=== PATIENT | female | born 1955 | race Caucasian/White ===

== ENCOUNTER 2017-09-08 12:30 | Outpatient (CLI) | payer OTHER ==
--- NOTE | 2017-09-08 15:00 | RAD ---
RIGHT SHOULDER THREE VIEWS: History: Right shoulder pain. FINDINGS/IMPRESSION: No fracture, dislocation, or bony destruction is seen. There is mild degenerative change in the right acromioclavicular joint. POS: [facility]
--- NOTE | 2017-09-08 15:10 | RAD ---
CHEST TWO VIEWS: HISTORY: Acute PA with stent placement. COMPARISON: Chest radiographs from 07/20/2014. FINDINGS: The lungs are clear. No pneumothorax or effusion. The cardiac silhouette and mediastinal contours a re within normal limits. There is no acute osseous abnormality. Mild vascular calcifications of the aorta. IMPRESSION: No acute intrathoracic abnormality. POS: [facility]
--- NOTE | 2017-09-08 15:17 | RAD ---
RIGHT RIBS: HISTORY: Rib pain for a month. No injury. COMPARISON: None. FINDINGS: No acute fracture. No malalignment. Acromioclavicular joint and glenohumeral joint are relatively u nremarkable. IMPRESSION: No acute fracture or malalignment of the right ribs. POS: [facility]
== END 2017-09-08 12:31 | disposition home or self-care (01) ==
LOC: NAV RAD 12:30
DX: M25.511 Pain in right shoulder (principal); I25.2 Old myocardial infarction; F17.290 Nicotine dependence, other tobacco product, uncomplicated; Z95.5 Presence of coronary angioplasty implant and graft; Z85.3 Personal history of malignant neoplasm of breast
CPT/HCPCS: 71046

== ENCOUNTER 2017-09-18 08:56 | Emergency (ER) | payer OTHER ==
[2017-09-18] MEDS ORDERED: HYDROcodone/Acetaminophen 10/325 mg Tablet ONE (09:23)
--- NOTE | 2017-09-18 09:56 | RAD ---
RIGHT KNEE FOUR VIEWS: History: Twisting injury. Pain. Comparison: None. FINDINGS: There is a suprapatellar effusion. No fracture or malalignment. Joint spaces are preserved. IMPRESSION: Nonspecific suprapatellar effusion. POS: [facility]
== END 2017-09-18 10:28 | disposition home or self-care (01) ==
LOC: NAV ERS 08:56
DX: S83.91XA Sprain of unspecified site of right knee, initial encounter (principal); I25.10 Atherosclerotic heart disease of native coronary artery without angina pectoris; E78.5 Hyperlipidemia, unspecified; F17.290 Nicotine dependence, other tobacco product, uncomplicated; Z79.82 Long term (current) use of aspirin; Z79.899 Other long term (current) drug therapy; Z85.3 Personal history of malignant neoplasm of breast; W54.1XXA Struck by dog, initial encounter
CPT/HCPCS: 99406

== ENCOUNTER 2020-08-22 00:28 | Inpatient (IN) | payer OTHER ==
[2020-08-22] MEDS ORDERED: Acetaminophen 500 MG TAB ONE (00:48)
[2020-08-22] MEDS ORDERED: Sodium Chloride 0.9% 1,000 ML ONE ×3 (00:58→03:46)
[2020-08-22] MEDS ORDERED: Sodium Chloride 0.9% 100 ML ONE (00:58)
[2020-08-22] MEDS ORDERED: cefTRIAXone\\ROCEPHIN 2 GM VIAL ONE (00:58)
[2020-08-22 01:11] LABS: Hemoglobin 13.7 g/dL (12.0-16.0); Mean Corpuscular HGB CONC 34.3 g/dL (32.0-36.0); Mean Corpuscular Hemoglobin 35.4 pg (27.0-31.0); Mean Platelet Volume 6.3 fL (7.4-10.4); Platelet Count 112 thou/uL (130-400); RBC Distribution Width 12.2 % (11.5-14.5); Red Blood Cell (RBC) Count 3.86 mill/uL (4.20-5.40); White Blood Cell (WBC) Count 10.8 thou/uL (4.8-10.8)
[2020-08-22 01:16] LABS: Bilirubin Negative (Negative); Blood, Urine Trace (Negative); Clarity Cloudy (Clear); Glucose, Urine (Dipstick) Negative (Negative); Ketone, Urine Negative (Negative); Leukocyte Trace (Negative); Nitrite Positive (Negative); Protein, Urine (Dipstick) Negative (Neg-Trace)
[2020-08-22 01:17] LABS: Bacteria/HPF 4+ HPF (None Seen); RBC/HPF 0-3 HPF (0-3); Squamous Epithelial 0-3 HPF (0-3)
[2020-08-22 01:19] LABS: #Basophils 0.1 thou/uL (0.0-0.2); #Eosinphils 0.3 thou/uL (0.0-0.7); #Monocytes 0.7 thou/uL (0.11-0.59); #Neutrophils 8.8 thou/uL (1.40-6.50); %Basophils 0.5 % (0.0-1.0); %Lymphocytes 8.8 % (21.0-51.0); %Monocytes 6.3 % (0.0-10.0); %Neutrophils 81.5 % (42.0-75.0); MDiff Complete? YES; Macrocytosis SLIGHT = 6-15 cells (100X) (0-5/hpf); Platelet Morphology Comment Appears Decreased
[2020-08-22 01:25] LABS: ALT (SGPT) 54 U/L (8-55); AST (SGOT) 73 U/L (5-34); Albumin 3.3 g/dL (3.4-4.8); Alkaline Phosphatase 110 U/L (40-110); Anion Gap 14 mmol/L (10-20); BUN (Urea Nitrogen) 8 mg/dL (9.8-20.1); Bilirubin, Total 1.6 mg/dL (0.2-1.2); Calc. Creatinine Clearance 0 mL/min (70-130); Calcium 8.9 mg/dL (7.8-10.44); Carbon Dioxide 22 mmol/L (23-31); Chloride 106 mmol/L (98-107); Globulin 3.5 g/dL (2.4-3.5); Glucose 108 mg/dL (80-115); Potassium 3.7 mmol/L (3.5-5.1); Protein, Total 6.8 g/dL (5.8-8.1); Sodium 138 mmol/L (136-145)
[2020-08-22] MEDS ORDERED: Sodium Chloride 0.9% 500 ML ONE (01:39)
[2020-08-22 02:15] LABS: SARS-CoV-2 NAA Rapid Test Not Detected (NotDetected)
[2020-08-22] MEDS ORDERED: Sodium Chloride 0.9% 20 ML ONE (04:33)
[2020-08-22] MEDS ORDERED: Ondansetron PF 4 MG/2 ML Vial IVP PRN ×2 (04:45→05:39)
[2020-08-22] MEDS ORDERED: Ondansetron ODT 4 MG TAB SL PRN ×2 (04:45→12:30)
[2020-08-22 04:52] VITALS: BMI 29.7
[2020-08-22] MEDS ORDERED: Ondansetron ODT 4 MG TAB PO PRN (05:39)
[2020-08-22] MEDS ORDERED: Acetaminophen 325 MG TAB PO PRN (05:39)
[2020-08-22] MEDS: Sodium Chloride 0.9% 1,000 ML IV SCH ×2 (05:50→12:55)
--- NOTE | 2020-08-22 07:30 | RAD ---
CHEST 1 VIEW: COMPARISON: 07/11/2013. 09/08/2017. HISTORY: Pain. FINDINGS: Normal cardiac silhouette. Atherosclerosis of the aorta. Chronic lung parenchymal changes without m ass or consolidation. No pneumothorax or pleural effusion. IMPRESSION: 1. No acute cardiopulmonary process. 2. Chronic lung parenchymal changes. 3. Atherosclerosis. POS: [facility]
[2020-08-22] MEDS: Famotidine 20 MG TAB PO SCH ×2 (09:05→20:55)
[2020-08-22] MEDS: Carvedilol 25 MG TAB PO SCH ×2 (09:05→17:15)
[2020-08-22] MEDS ORDERED: cefTRIAXone\\ROCEPHIN 1 GM in Sodium Chloride 0.9% 100 ML IVPB SCH (18:00)
--- NOTE | 2020-08-23 08:07 | HP ---
Admission to the acute unit of [facility]. A patient of Ms. Mayra Bond. HISTORY OF PRESENT ILLNESS: The patient is a very pleasant 64-year-old female, who presented to the emergency room on the day prior to admission with acute onset of chills, weakness, and malaise. Was found to be febrile in the emergency room to 102.4 with normal O2 sat at 97%, blood pressure 128/69, and pulse of 119. She met sepsis protocol and had a sepsis workup with evaluation revealing positive nitrite, 4 to 6 white cells. Her serum white count was normal, however, at 10.8 and lactate was 1.5. She was given fluid resuscitation in the emergency room and appeared to stabilize. Had blood and urine cultures done and was started on IV vancomycin and Rocephin and was admitted to the acute unit for monitoring. She denied any symptoms of chest pain, shortness of breath, palpitations, cough, sputum production, abdominal pain, nausea, or vomiting. PAST MEDICAL HISTORY: Remarkable for history of coronary artery disease status post stents in 2000 and 2005 after non-ST VT. She subsequently developed ischemic cardiomyopathy, ejection fraction 15% to 20%, was being followed by Dr. Solorzano, and now ejection fraction is up to normal at 60% on carvedilol. She also has a history of hypertension, which is controlled to goal on this medication; hyperlipidemia; chronic psoriasis which she is on no treatment at this time; and nicotine abuse. She, however, states that she stopped smoking in 2019. She denies alcohol and drug abuse. She does live alone. Her medical history is also positive for cancer of the breast, status post lumpectomy, chemotherapy and radiation. PAST SURGICAL HISTORY: Positive for stents in 2000 and 2005, lumpectomy in 2017, left carotid stent, tonsillectomy, and kidney stone removal. ALLERGIES: SHE HAS A HISTORY OF ALLERGIES TO PENICILLIN AND CODEINE, BUT WAS GIVEN ROCEPHIN IN THE ER AND VANCOMYCIN, NOT ZOSYN, BECAUSE OF THIS. REVIEW OF SYSTEMS: HEENT: She denies headaches, dizziness, change in vision or hearing, hoarseness, or dysphagia. PULMONARY: Denies cough, sputum production, pneumonia, asthma, or tuberculosis. CARDIOVASCULAR: Denies chest pain, orthopnea, paroxysmal nocturnal dyspnea, or edema. GASTROINTESTINAL: Denies nausea, vomiting, diarrhea, constipation, or abdominal pain. GENITOURINARY: Denies dysuria or hematuria. MUSCULOSKELETAL: Complains of diffuse myalgias and weakness. NEUROLOGIC: Denies localized numbness or weakness in the arms or extremities. PHYSICAL EXAMINATION: GENERAL: The patient is an elderly white female, appears in mild distress, weak, lying in bed, but in no respiratory distress. Oriented x3 and cooperative. VITAL SIGNS: Showed to have blood pressure of 94/44, temperature is 99, pulse 96, respirations 18, and O2 sats 96% on room air. HEENT: Pupils are equal, round, and reactive to light and accommodation. Sclerae anicteric. Conjunctivae pale. Oral mucous membranes well hydrated. NECK: Supple. There are no nodes or masses. JVP is not elevated. LUNGS: Clear. CARDIAC: Regular rhythm. No gallops or murmurs. ABDOMEN: Soft and nontender with no masses or organomegaly. SKIN/EXTREMITIES: Display no edema, clubbing, or cyanosis. NEUROLOGICAL: Intact. LABORATORY DATA: Urine and blood cultures are pending. White count 10,800, hematocrit 39, hemoglobin 13. Sodium is 138, potassium 3.7, chloride 106, bicarb 22, BUN 8, creatinine 0.78. Lactate repeated is 1.4. Total bilirubin 1.6, AST 73. Troponin 0.010. Chest x-ray shows no acute process, chronic lung parenchymal changes. ASSESSMENT: A 64-year-old white female, who presents with sepsis criteria with tachycardia, fever, chills despite no leukocytosis, borderline lactate, is being admitted to the hospital for treatment of early sepsis, most likely due to urinary tract infection. Urine and blood cultures have been done. She has been started on broad-spectrum antibiotics with Rocephin and vancomycin and will also be given continued fluids as she did respond to fluid resuscitation in the emergency room after blood pressure decreased slightly. She is chronically on medications of carvedilol 12.5 twice daily, aspirin 325 daily, furosemide 10 daily with simvastatin 40 nightly and Aldactone 25 daily. These will all be held and the carvedilol will be given only if blood pressure is above 110. Job ID: [id number]
[2020-08-23] MEDS: Carvedilol 25 MG TAB PO SCH ×2 (09:03→18:15)
[2020-08-23] MEDS: Famotidine 20 MG TAB PO SCH (09:04)
[2020-08-23 18:11] VITALS: BP 113/54; TEMP 98
[2020-08-23] MEDS ORDERED: Sulfameth/Trimethoprim DS 800-160mg TAB PO SCH (21:00)
== END 2020-08-23 19:00 | disposition home or self-care (01) | DRG 872 ==
LOC: NAV ERS 00:28 → NAV ACUTE 03:57
PROVIDERS: ADMIT Internal Medicine; ATTEND Internal Medicine
DX: A41.9 Sepsis, unspecified organism (principal); N39.0 Urinary tract infection, site not specified; I25.10 Atherosclerotic heart disease of native coronary artery without angina pectoris; E78.5 Hyperlipidemia, unspecified; I25.5 Ischemic cardiomyopathy; I10 Essential (primary) hypertension; L40.9 Psoriasis, unspecified; Z20.822 Contact with and (suspected) exposure to COVID-19; E78.00 Pure hypercholesterolemia, unspecified; Z92.3 Personal history of irradiation; Z92.21 Personal history of antineoplastic chemotherapy; Z85.3 Personal history of malignant neoplasm of breast; Z87.891 Personal history of nicotine dependence; Z90.89 Acquired absence of other organs; Z88.0 Allergy status to penicillin; Z88.6 Allergy status to analgesic agent; Z79.82 Long term (current) use of aspirin; Z79.891 Long term (current) use of opiate analgesic; Z79.899 Other long term (current) drug therapy; Z95.5 Presence of coronary angioplasty implant and graft; I25.2 Old myocardial infarction; Z87.442 Personal history of urinary calculi; Z95.820 Peripheral vascular angioplasty status with implants and grafts
CPT/HCPCS: 0240U; 71045; 80053; 81003; 81015; 83605; 84484; 85025; 87040; 87077; 87086; 87186; 93005; 96365; 96366; 96367; J0696; J3370; J3490; J7030; J7050

== ENCOUNTER 2021-02-07 16:53 | Emergency (ER) | payer BC ==
[~2021-02-07 16:53] MED LIST: Iopamidol 370 76% 100 ML VIAL ONE
[2021-02-07] MEDS ORDERED: Ondansetron PF 4 MG/2 ML Vial ONE ×2 (17:05→18:03)
[2021-02-07 17:12] LABS: #Basophils 0.1 thou/uL (0.0-0.2); #Eosinphils 1.1 thou/uL (0.0-0.7); #Lymphocytes 1.5 thou/uL (1.20-3.40); #Monocytes 0.5 thou/uL (0.11-0.59); #Neutrophils 4.2 thou/uL (1.40-6.50); %Basophils 0.7 % (0.0-1.0); %Eosinophils 15.3 % (0.0-10.0); %Lymphocytes 20.2 % (21.0-51.0); %Monocytes 6.5 % (0.0-10.0); %Neutrophils 57.3 % (42.0-75.0); Hemoglobin 10.1 g/dL (12.0-16.0); Mean Corpuscular HGB CONC 32.2 g/dL (32.0-36.0); Mean Corpuscular Hemoglobin 33.6 pg (27.0-31.0); Mean Platelet Volume 6.5 fL (7.4-10.4); Platelet Count 129 thou/uL (130-400); RBC Distribution Width 14.5 % (11.5-14.5); White Blood Cell (WBC) Count 7.3 thou/uL (4.8-10.8)
[2021-02-07] MEDS ORDERED: Sodium Chloride 0.9% 1,000 ML ONE (17:19)
[2021-02-07 17:32] LABS: ALT (SGPT) 50 U/L (8-55); AST (SGOT) 103 U/L (5-34); Albumin 3.2 g/dL (3.4-4.8); Alkaline Phosphatase 120 U/L (40-110); Anion Gap 13 mmol/L (10-20); BUN (Urea Nitrogen) 17 mg/dL (9.8-20.1); Bilirubin, Total 1.5 mg/dL (0.2-1.2); Calc. Creatinine Clearance 0 mL/min (70-130); Calcium 9.2 mg/dL (7.8-10.44); Carbon Dioxide 23 mmol/L (23-31); Chloride 106 mmol/L (98-107); Globulin 3.6 g/dL (2.4-3.5); Glucose 115 mg/dL (80-115); Lipase 71 U/L (8-78); Potassium 3.9 mmol/L (3.5-5.1); Protein, Total 6.8 g/dL (5.8-8.1); Sodium 138 mmol/L (136-145)
[2021-02-07 19:29] LABS: Bilirubin Negative (Negative); Blood, Urine Negative (Negative); Glucose, Urine (Dipstick) Negative (Negative); Ketone, Urine Negative (Negative); Leukocyte Trace (Negative); Nitrite Positive (Negative); Protein, Urine (Dipstick) Negative (Neg-Trace); Specific Gravity, Urine 1.015 (1.005-1.030)
[2021-02-07 19:42] LABS: Clarity SL HAZY (Clear)
[2021-02-07 19:43] LABS: Bacteria/HPF 3+ HPF (None Seen); RBC/HPF 0-3 HPF (0-3); Squamous Epithelial 0-3 HPF (0-3)
[2021-02-07] MEDS ORDERED: Sulfameth/Trimethoprim DS 800-160mg TAB ONE (21:38)
[2021-02-07] MEDS ORDERED: Promethazine 25 MG TAB ONE (21:38)
== END 2021-02-07 21:46 | disposition home or self-care (01) ==
LOC: NAV ERS 16:53
DX: N39.0 Urinary tract infection, site not specified (principal); E86.0 Dehydration; I25.10 Atherosclerotic heart disease of native coronary artery without angina pectoris; E78.5 Hyperlipidemia, unspecified; E78.00 Pure hypercholesterolemia, unspecified; Z87.891 Personal history of nicotine dependence; Z79.82 Long term (current) use of aspirin; Z79.899 Other long term (current) drug therapy
CPT/HCPCS: 71045; 74177; 80053; 81003; 81015; 83690; 83880; 84484; 85025; 87077; 87086; 87186; 93005; 94760; 96374; 96376; J2405; J7050; Q0169; Q9967

== ENCOUNTER 2021-02-11 18:42 | Emergency (ER) | payer BC ==
[2021-02-11] MEDS ORDERED: Morphine 4 MG/ML VIAL ONE (19:26)
[2021-02-11] MEDS ORDERED: Ondansetron PF 4 MG/2 ML Vial ONE (19:27)
[2021-02-11] MEDS ORDERED: Pantoprazole 40 MG VIAL ONE (19:27)
[2021-02-11] MEDS ORDERED: Lidocaine Viscous Sol 2% 15 ml UD Cup ONE (19:27)
[2021-02-11] MEDS ORDERED: Mag-Al Plus 1200 MG/1200 MG/120 MG/30 ML UDCUP ONE (19:27)
[2021-02-11] MEDS ORDERED: Sodium Chloride 0.9% 500 ML ONE (19:27)
[2021-02-11 19:41] LABS: #Eosinphils 0.3 thou/uL (0.0-0.7); #Lymphocytes 0.7 thou/uL (1.20-3.40); #Monocytes 0.2 thou/uL (0.11-0.59); #Neutrophils 2.4 thou/uL (1.40-6.50); %Basophils 0.7 % (0.0-1.0); %Eosinophils 7.1 % (0.0-10.0); %Lymphocytes 19.8 % (21.0-51.0); %Monocytes 5.8 % (0.0-10.0); %Neutrophils 66.6 % (42.0-75.0); Hemoglobin 9.7 g/dL (12.0-16.0); Mean Corpuscular HGB CONC 31.9 g/dL (32.0-36.0); Mean Corpuscular Hemoglobin 33.8 pg (27.0-31.0); Mean Platelet Volume 6.5 fL (7.4-10.4); Platelet Count 81 thou/uL (130-400); RBC Distribution Width 14.7 % (11.5-14.5); Red Blood Cell (RBC) Count 2.87 mill/uL (4.20-5.40); White Blood Cell (WBC) Count 3.6 thou/uL (4.8-10.8)
[2021-02-11 19:46] LABS: ALT (SGPT) 43 U/L (8-55); AST (SGOT) 48 U/L (5-34); Alkaline Phosphatase 102 U/L (40-110); Anion Gap 15 mmol/L (10-20); BUN (Urea Nitrogen) 8 mg/dL (9.8-20.1); Calc. Creatinine Clearance 0 mL/min (70-130); Calcium 8.8 mg/dL (7.8-10.44); Carbon Dioxide 20 mmol/L (23-31); Chloride 105 mmol/L (98-107); Globulin 3.2 g/dL (2.4-3.5); Glucose 111 mg/dL (80-115); Lipase 52 U/L (8-78); Potassium 3.8 mmol/L (3.5-5.1); Protein, Total 6.2 g/dL (5.8-8.1); Sodium 136 mmol/L (136-145)
[2021-02-11] MEDS ORDERED: Sucralfate 1 GM TAB ONE (20:51)
== END 2021-02-11 21:05 | disposition home or self-care (01) ==
LOC: NAV ERS 18:42
DX: K29.00 Acute gastritis without bleeding (principal); I25.10 Atherosclerotic heart disease of native coronary artery without angina pectoris; E78.5 Hyperlipidemia, unspecified; E78.00 Pure hypercholesterolemia, unspecified; Z87.891 Personal history of nicotine dependence
CPT/HCPCS: 80053; 83690; 85025; 96361; 96374; 96375; C9113; J2270; J2405; J7030

== ENCOUNTER 2021-02-13 12:34 | Emergency (ER) | payer BC ==
[2021-02-13] MEDS ORDERED: Ondansetron ODT 4 MG TAB ONE (12:51)
[2021-02-13] MEDS ORDERED: Ondansetron PF 4 MG/2 ML Vial ONE (13:26)
[2021-02-13 13:39] LABS: ALT (SGPT) 41 U/L (8-55); AST (SGOT) 52 U/L (5-34); Albumin 2.9 g/dL (3.4-4.8); Alkaline Phosphatase 94 U/L (40-110); Anion Gap 15 mmol/L (10-20); BUN (Urea Nitrogen) 10 mg/dL (9.8-20.1); Bilirubin, Total 1.2 mg/dL (0.2-1.2); Calc. Creatinine Clearance 0 mL/min (70-130); Calcium 8.9 mg/dL (7.8-10.44); Carbon Dioxide 18 mmol/L (23-31); Chloride 104 mmol/L (98-107); Globulin 3.4 g/dL (2.4-3.5); Glucose 102 mg/dL (80-115); Potassium 3.6 mmol/L (3.5-5.1); Protein, Total 6.3 g/dL (5.8-8.1); Sodium 133 mmol/L (136-145)
[2021-02-13 13:41] LABS: #Eosinphils 0.1 thou/uL (0.0-0.7); #Lymphocytes 0.8 thou/uL (1.20-3.40); #Monocytes 0.3 thou/uL (0.11-0.59); %Basophils 0.8 % (0.0-1.0); %Eosinophils 4.1 % (0.0-10.0); %Lymphocytes 25.5 % (21.0-51.0); %Monocytes 8.4 % (0.0-10.0); %Neutrophils 61.2 % (42.0-75.0); Hemoglobin 10.4 g/dL (12.0-16.0); Mean Corpuscular HGB CONC 30.9 g/dL (32.0-36.0); Mean Corpuscular Hemoglobin 33.6 pg (27.0-31.0); Mean Platelet Volume 6.1 fL (7.4-10.4); Platelet Count 63 thou/uL (130-400); RBC Distribution Width 15.1 % (11.5-14.5); Red Blood Cell (RBC) Count 3.08 mill/uL (4.20-5.40); White Blood Cell (WBC) Count 3.3 thou/uL (4.8-10.8)
[2021-02-13] MEDS ORDERED: Ketorolac Tromethamine 30 MG/ML VIAL ONE (14:03)
[2021-02-13] MEDS ORDERED: Sodium Chloride 0.9% 1,000 ML ONE ×2 (14:03→17:06)
[2021-02-13] MEDS ORDERED: Sodium Chloride 0.9% 100 ML ONE (15:05)
[2021-02-13] MEDS ORDERED: Promethazine HCl 25 MG/ML VIAL ONE (15:05)
[2021-02-13] MEDS ORDERED: Morphine 4 MG/ML VIAL ONE (15:18)
[2021-02-13 16:26] LABS: Lactic Acid 1.2 mmol/L (0.5-2.2)
== END 2021-02-13 18:50 | disposition home or self-care (01) ==
LOC: NAV ERS 12:34
DX: E86.0 Dehydration (principal); R11.2 Nausea with vomiting, unspecified; M54.9 Dorsalgia, unspecified; I25.10 Atherosclerotic heart disease of native coronary artery without angina pectoris; E78.5 Hyperlipidemia, unspecified; E78.00 Pure hypercholesterolemia, unspecified; Z87.891 Personal history of nicotine dependence; Z79.82 Long term (current) use of aspirin; Z79.899 Other long term (current) drug therapy
CPT/HCPCS: 71045; 71260; 74177; 80053; 83605; 84484; 85025; 85379; 93005; 94760; 96365; 96375; J1885; J2270; J2405; J2550; J7050; Q0162; Q9967

== ENCOUNTER 2021-08-12 21:45 | Emergency (ER) | payer BC ==
[2021-08-12] MEDS ORDERED: Ondansetron PF 4 MG/2 ML Vial ONE (22:23)
[2021-08-12] MEDS ORDERED: Sodium Chloride 0.9% 1,000 ML ONE (22:23)
[2021-08-12] MEDS ORDERED: Morphine 4 MG/ML VIAL ONE (23:07)
[2021-08-12 23:17] LABS: ALT (SGPT) 50 U/L (8-55); AST (SGOT) 60 U/L (5-34); Albumin 2.6 g/dL (3.4-4.8); Alkaline Phosphatase 103 U/L (40-110); Anion Gap 13 mmol/L (10-20); BUN (Urea Nitrogen) 6 mg/dL (9.8-20.1); Bilirubin, Total 1.8 mg/dL (0.2-1.2); Calc. Creatinine Clearance 0 mL/min (70-130); Calcium 8.6 mg/dL (7.8-10.44); Carbon Dioxide 22 mmol/L (23-31); Chloride 102 mmol/L (98-107); Globulin 3.6 g/dL (2.4-3.5); Glucose 95 mg/dL (80-115); Lipase 32 U/L (8-78); Potassium 3.7 mmol/L (3.5-5.1); Protein, Total 6.2 g/dL (5.8-8.1); Sodium 133 mmol/L (136-145)
[2021-08-12 23:25] LABS: #Eosinphils 0.2 thou/uL (0.0-0.7); #Lymphocytes 0.8 thou/uL (1.20-3.40); #Monocytes 0.5 thou/uL (0.11-0.59); %Basophils 0.8 % (0.0-1.0); %Eosinophils 5.1 % (0.0-10.0); %Lymphocytes 17.3 % (21.0-51.0); %Monocytes 10.8 % (0.0-10.0); Hemoglobin 9.9 g/dL (12.0-16.0); Mean Corpuscular HGB CONC 32.4 g/dL (32.0-36.0); Mean Platelet Volume 7.2 fL (7.4-10.4); Platelet Count 124 thou/uL (130-400); RBC Distribution Width 16.6 % (11.5-14.5); Red Blood Cell (RBC) Count 2.92 mill/uL (4.20-5.40); White Blood Cell (WBC) Count 4.5 thou/uL (4.8-10.8)
== END 2021-08-13 00:36 | disposition home or self-care (01) ==
LOC: NAV ERS 21:45
DX: R10.13 Epigastric pain (principal); R11.10 Vomiting, unspecified; I25.10 Atherosclerotic heart disease of native coronary artery without angina pectoris; E78.5 Hyperlipidemia, unspecified; E78.00 Pure hypercholesterolemia, unspecified; Z87.891 Personal history of nicotine dependence; Z79.899 Other long term (current) drug therapy
CPT/HCPCS: 74176; 80053; 82140; 83690; 85025; 96374; 96375; J2270; J2405; J7050

== ENCOUNTER 2021-08-16 07:40 | Emergency (ER) | payer BC ==
[2021-08-16] MEDS ORDERED: Ondansetron PF 4 MG/2 ML Vial ONE (08:37)
[2021-08-16] MEDS ORDERED: Sodium Chloride 0.9% 1,000 ML ONE (08:37)
[2021-08-16 09:11] LABS: ALT (SGPT) 39 U/L (8-55); AST (SGOT) 40 U/L (5-34); Albumin 2.7 g/dL (3.4-4.8); Alkaline Phosphatase 106 U/L (40-110); Anion Gap 11 mmol/L (10-20); BUN (Urea Nitrogen) 7 mg/dL (9.8-20.1); Calc. Creatinine Clearance 0 mL/min (70-130); Calcium 8.8 mg/dL (7.8-10.44); Carbon Dioxide 25 mmol/L (23-31); Chloride 100 mmol/L (98-107); Globulin 3.1 g/dL (2.4-3.5); Glucose 120 mg/dL (80-115); Lipase 47 U/L (8-78); Protein, Total 5.8 g/dL (5.8-8.1); Sodium 133 mmol/L (136-145)
[2021-08-16 09:14] LABS: #Eosinphils 0.1 thou/uL (0.0-0.7); #Lymphocytes 0.5 thou/uL (1.20-3.40); #Monocytes 0.3 thou/uL (0.11-0.59); #Neutrophils 2.7 thou/uL (1.40-6.50); %Basophils 1.1 % (0.0-1.0); %Eosinophils 1.9 % (0.0-10.0); %Lymphocytes 14.5 % (21.0-51.0); %Monocytes 7.8 % (0.0-10.0); %Neutrophils 74.7 % (42.0-75.0); Hemoglobin 10.3 g/dL (12.0-16.0); Mean Corpuscular HGB CONC 32.9 g/dL (32.0-36.0); Mean Corpuscular Hemoglobin 34.2 pg (27.0-31.0); Mean Platelet Volume 6.2 fL (7.4-10.4); Platelet Count 111 thou/uL (130-400); RBC Distribution Width 16.8 % (11.5-14.5); Red Blood Cell (RBC) Count 3.01 mill/uL (4.20-5.40); White Blood Cell (WBC) Count 3.7 thou/uL (4.8-10.8)
== END 2021-08-16 10:30 | disposition home or self-care (01) ==
LOC: NAV ERS 07:40
DX: E86.0 Dehydration (principal); R11.2 Nausea with vomiting, unspecified; I25.10 Atherosclerotic heart disease of native coronary artery without angina pectoris; E78.5 Hyperlipidemia, unspecified; E78.00 Pure hypercholesterolemia, unspecified; Z87.19 Personal history of other diseases of the digestive system; Z87.891 Personal history of nicotine dependence; Z85.3 Personal history of malignant neoplasm of breast; Z79.899 Other long term (current) drug therapy
CPT/HCPCS: 80053; 82140; 83690; 85025; 96372; 96374; J0500; J2405; J7050

== ENCOUNTER 2021-08-26 16:52 | Observation (INO) | payer BC ==
[2021-08-26 18:18] LABS: ALT (SGPT) 41 U/L (8-55); AST (SGOT) 46 U/L (5-34); Albumin 2.7 g/dL (3.4-4.8); Alkaline Phosphatase 105 U/L (40-110); Anion Gap 11 mmol/L (10-20); BUN (Urea Nitrogen) 4 mg/dL (9.8-20.1); Bilirubin, Total 1.8 mg/dL (0.2-1.2); Calc. Creatinine Clearance 0 mL/min (70-130); Calcium 8.8 mg/dL (7.8-10.44); Carbon Dioxide 25 mmol/L (23-31); Chloride 103 mmol/L (98-107); Globulin 3.4 g/dL (2.4-3.5); Glucose 92 mg/dL (80-115); Potassium 3.6 mmol/L (3.5-5.1); Protein, Total 6.1 g/dL (5.8-8.1); Sodium 135 mmol/L (136-145)
[2021-08-26 18:19] LABS: Magnesium 1.8 mg/dL (1.6-2.6)
[2021-08-26 18:21] LABS: Phosphorus 1.3 mg/dL (2.3-4.7)
[2021-08-26 20:28] LABS: SARS-CoV-2 NAA Rapid Test Not Detected (NotDetected)
[2021-08-26] MEDS ORDERED: Potassium Phosphate 22 MMOL in Sodium Chloride 0.9% 250 ML 250 ML IVPB SCH (21:30)
[2021-08-26] MEDS ORDERED: Carvedilol 3.125 MG TAB PO PRN (22:31)
[2021-08-26] MEDS ORDERED: Dicyclomine 20 MG TAB PO PRN (22:32)
[2021-08-26] MEDS ORDERED: Promethazine 25 MG TAB PO PRN (22:36)
[2021-08-26 22:51] VITALS: BMI 25.0
[2021-08-26] MEDS ORDERED: Atorvastatin Calcium 40 MG TAB PO SCH (23:00)
[2021-08-27 06:40] LABS: Anion Gap 7 mmol/L (10-20)
[2021-08-27 06:43] LABS: BUN (Urea Nitrogen) 4 mg/dL (9.8-20.1); Calc. Creatinine Clearance 97 mL/min (70-130); Calcium 8.3 mg/dL (7.8-10.44); Carbon Dioxide 24 mmol/L (23-31); Chloride 108 mmol/L (98-107); Glucose 79 mg/dL (80-115); Magnesium 1.7 mg/dL (1.6-2.6); Phosphorus 2.1 mg/dL (2.3-4.7); Potassium 3.3 mmol/L (3.5-5.1); Sodium 136 mmol/L (136-145)
[2021-08-27] MEDS ORDERED: Spironolactone 25 MG TAB PO SCH (08:00)
[2021-08-27] MEDS ORDERED: Furosemide 20 MG TAB PO SCH (09:00)
[2021-08-27] MEDS ORDERED: Carvedilol 25 MG TAB PO PRN ×2 (13:14→14:00)
[2021-08-27 13:25] VITALS: BP 101/66; TEMP 98.4
[2021-08-27] MEDS ORDERED: Promethazine 25 MG TAB PO PRN (13:43)
[2021-08-27] MEDS ORDERED: Carvedilol 3.125 MG TAB PO PRN (14:00)
[2021-08-27] MEDS ORDERED: Atorvastatin Calcium 40 MG TAB PO SCH ×2 (21:00)
[2021-08-28] MEDS ORDERED: Spironolactone 25 MG TAB PO SCH (08:00)
[2021-08-28] MEDS ORDERED: Potassium Chloride 20 MEQ TAB PO SCH ×2 (08:00)
[2021-08-28] MEDS ORDERED: Furosemide 20 MG TAB PO SCH (09:00)
== END 2021-08-27 13:50 | disposition home or self-care (01) ==
LOC: NAV ERS 16:52 → NAV ACUTE 19:40
PROVIDERS: ADMIT Family Medicine; ATTEND Family Medicine
DX: E83.39 Other disorders of phosphorus metabolism (principal); K74.60 Unspecified cirrhosis of liver; I25.10 Atherosclerotic heart disease of native coronary artery without angina pectoris; E78.5 Hyperlipidemia, unspecified; E78.00 Pure hypercholesterolemia, unspecified; Z85.3 Personal history of malignant neoplasm of breast; Z87.891 Personal history of nicotine dependence; Z79.899 Other long term (current) drug therapy; Z88.0 Allergy status to penicillin; Z88.5 Allergy status to narcotic agent; Z95.5 Presence of coronary angioplasty implant and graft; Z20.822 Contact with and (suspected) exposure to COVID-19
CPT/HCPCS: 80048; 80053; 83735; 84100; 96365; 96366; 99284; G0378; J7050; U0002

== ENCOUNTER 2021-09-05 14:18 | Emergency (ER) | payer BC ==
[2021-09-05] MEDS ORDERED: oxyCODONE 5 MG TAB PO SCH (14:51)
== END 2021-09-05 16:05 | disposition home or self-care (01) ==
LOC: NAV ERS 14:18
DX: S39.012A Strain of muscle, fascia and tendon of lower back, initial encounter (principal); S93.602A Unspecified sprain of left foot, initial encounter; S20.212A Contusion of left front wall of thorax, initial encounter; S30.0XXA Contusion of lower back and pelvis, initial encounter; I25.10 Atherosclerotic heart disease of native coronary artery without angina pectoris; E78.5 Hyperlipidemia, unspecified; Z87.891 Personal history of nicotine dependence; Z79.899 Other long term (current) drug therapy; W00.0XXA Fall on same level due to ice and snow, initial encounter
CPT/HCPCS: 71250; 72131; 72192; 94799

== ENCOUNTER 2022-09-15 15:08 | Emergency (ER) | payer BC ==
[2022-09-15 16:15] LABS: #Basophils 0.1 thou/uL (0.0-0.2); #Eosinphils 0.1 thou/uL (0.0-0.7); #Lymphocytes 0.8 thou/uL (1.20-3.40); #Monocytes 0.7 thou/uL (0.11-0.59); #Neutrophils 5.5 thou/uL (1.40-6.50); %Basophils 0.7 % (0.0-1.0); %Eosinophils 1.2 % (0.0-10.0); %Lymphocytes 11.2 % (21.0-51.0); %Monocytes 9.7 % (0.0-10.0); %Neutrophils 77.2 % (42.0-75.0); Mean Corpuscular HGB CONC 32.8 g/dL (32.0-36.0); Mean Corpuscular Hemoglobin 35.7 pg (27.0-31.0); Mean Platelet Volume 6.1 fL (7.4-10.4); Platelet Count 99 10x3/uL (130-400); RBC Distribution Width 23.4 % (11.5-14.5); Red Blood Cell (RBC) Count 1.54 mill/uL (4.20-5.40); White Blood Cell (WBC) Count 7.1 10x3/uL (4.8-10.8)
[2022-09-15 16:17] LABS: Hemoglobin 5.5 g/dL (12.0-16.0)
[2022-09-15 16:22] LABS: Anisocytosis SLIGHT = 6-15 cells (100X) (0-5/hpf); Burr Cells SLIGHT = 2-5 cells (100X) (0-1/hpf); Elliptocytes SLIGHT = 2-5 cells (100X) (0-1/hpf); Spherocytes SLIGHT = 1-5 cells (100X) (None Seen)
[2022-09-15 16:23] LABS: Hypochromia SLIGHT = 6-15 cells (100X) (0-5/hpf); Macrocytosis SLIGHT = 6-15 cells (100X) (0-5/hpf)
[2022-09-15 16:24] LABS: Platelet Morphology Comment Appears Decreased
== END 2022-09-15 17:44 | disposition short-term general hospital (02) ==
LOC: NAV ERS 15:08
DX: D64.9 Anemia, unspecified (principal); I25.10 Atherosclerotic heart disease of native coronary artery without angina pectoris; E78.00 Pure hypercholesterolemia, unspecified; Z87.891 Personal history of nicotine dependence
CPT/HCPCS: 36415; 85025; 86850; 86870; 86900; 86901; 99284

== ENCOUNTER 2022-12-04 03:16 | Emergency (ER) | payer BC, MEDICARE ==
[2022-12-04 03:48] LABS: Mean Corpuscular Volume 96.3 fl (78.0-98.0); Red Blood Cell (RBC) Count 3.26 mill/uL (4.20-5.40); White Blood Cell (WBC) Count 4.5 10x3/uL (4.8-10.8)
[2022-12-04 03:49] LABS: #Eosinphils 0.3 thou/uL (0.0-0.7); #Lymphocytes 0.9 thou/uL (1.20-3.40); #Monocytes 0.6 thou/uL (0.11-0.59); #Neutrophils 2.7 thou/uL (1.40-6.50); %Eosinophils 5.6 % (0.0-10.0); %Lymphocytes 20.1 % (21.0-51.0); %Neutrophils 59.3 % (42.0-75.0); Manual Diff?? NO; Mean Corpuscular HGB CONC 31.8 g/dL (32.0-36.0); Mean Corpuscular Hemoglobin 30.6 pg (27.0-31.0); Mean Platelet Volume 6.1 fL (7.4-10.4); Platelet Count 94 10x3/uL (130-400)
[2022-12-04] MEDS ORDERED: Sodium Chloride 0.9% 1,000 ML ONE (03:51)
[2022-12-04] MEDS ORDERED: Ondansetron PF 4 MG/2 ML Vial ONE (03:51)
[2022-12-04] MEDS ORDERED: Morphine 4 MG/ML VIAL ONE ×2 (03:51→05:58)
[2022-12-04] MEDS ORDERED: Aspirin Chewable 81 MG TAB ONE (03:51)
[2022-12-04 04:00] LABS: AST (SGOT) 35 U/L (5-34); Alkaline Phosphatase 126 U/L (40-110); Anion Gap 11 mmol/L (10-20); BUN (Urea Nitrogen) 6 mg/dL (9.8-20.1); Bilirubin, Total 1.6 mg/dL (0.2-1.2); Calc. Creatinine Clearance 0 mL/min (70-130); Carbon Dioxide 23 mmol/L (23-31); Chloride 108 mmol/L (98-107); Estimated GFR 84; Globulin 2.7 g/dL (2.4-3.5); Glucose 101 mg/dL (80-115); Potassium 3.5 mmol/L (3.5-5.1); Protein, Total 4.7 g/dL (5.8-8.1); Sodium 138 mmol/L (136-145)
[2022-12-04 04:04] LABS: ALT (SGPT) 30 U/L (8-55)
[2022-12-04] MEDS ORDERED: fentaNYL 50 mcg/mL 1 mL Vial ONE (04:36)
[2022-12-04] MEDS ORDERED: Fentanyl 100 MCG/2 ML VIAL ONE (05:17)
== END 2022-12-04 06:14 | disposition home or self-care (01) ==
LOC: NAV ERS 03:16
DX: R07.89 Other chest pain (principal); K80.20 Calculus of gallbladder without cholecystitis without obstruction; K59.00 Constipation, unspecified; R79.1 Abnormal coagulation profile; I25.10 Atherosclerotic heart disease of native coronary artery without angina pectoris; Z87.891 Personal history of nicotine dependence; Z79.899 Other long term (current) drug therapy
CPT/HCPCS: 71045; 74177; 80053; 83690; 83880; 84484; 85025; 85379; 93005; 96372; 96374; 96375; 96376; 99285; J3010; J1650; J2270; J2405; J7050

== ENCOUNTER 2023-04-15 19:06 | Emergency (ER) | payer MEDICARE ==
[2023-04-15] MEDS ORDERED: Sodium Chloride 0.9% 500 ML ONE (20:00)
[2023-04-15] MEDS ORDERED: Ondansetron PF 4 MG/2 ML Vial ONE (20:00)
[2023-04-15 20:06] LABS: #Eosinphils 0.1 thou/uL (0.0-0.7); #Lymphocytes 0.8 thou/uL (1.20-3.40); #Monocytes 0.5 thou/uL (0.11-0.59); #Neutrophils 2.6 thou/uL (1.40-6.50); %Basophils 0.6 % (0.0-1.0); %Lymphocytes 19.9 % (21.0-51.0); %Monocytes 11.2 % (0.0-10.0); %Neutrophils 65.4 % (42.0-75.0); Hematocrit 27.6 % (36.0-47.0); Hemoglobin 8.9 g/dL (12.0-16.0); Mean Corpuscular HGB CONC 32.3 g/dL (32.0-36.0); Mean Platelet Volume 6.3 fL (7.4-10.4); Platelet Count 96 10x3/uL (130-400)
[2023-04-15 20:20] LABS: ALT (SGPT) 24 U/L (8-55); AST (SGOT) 41 U/L (5-34); Albumin 2.6 g/dL (3.4-4.8); Alkaline Phosphatase 136 U/L (40-110); Anion Gap 12 mmol/L (10-20); BUN (Urea Nitrogen) 10 mg/dL (9.8-20.1); Bilirubin, Total 1.6 mg/dL (0.2-1.2); Calc. Creatinine Clearance 0 mL/min (70-130); Calcium 9.9 mg/dL (7.8-10.44); Carbon Dioxide 26 mmol/L (23-31); Chloride 104 mmol/L (98-107); Estimated GFR 76; Globulin 2.8 g/dL (2.4-3.5); Glucose 105 mg/dL (80-115); Lipase 93 U/L (8-78); Potassium 3.2 mmol/L (3.5-5.1); Protein, Total 5.4 g/dL (5.8-8.1); Sodium 139 mmol/L (136-145)
[2023-04-15] MEDS ORDERED: Promethazine HCl 25 MG/ML VIAL ONE (20:20)
[2023-04-15 20:26] LABS: Bilirubin Negative (Negative); Blood, Urine Negative (Negative); Clarity Clear (Clear); Glucose, Urine (Dipstick) Negative (Negative); Ketone, Urine Negative (Negative); Leukocyte Small (Negative); Nitrite Negative (Negative); Protein, Urine (Dipstick) Negative (Neg-Trace); Specific Gravity, Urine 1.015 (1.005-1.030); Urobilinogen 0.2 mg/dL (Less than 2); pH, Urine 7.5 (5.0-9.0)
[2023-04-15 20:29] LABS: CAUTI Indications for Culture Fever or rigors; RBC/HPF 0-3 HPF (0-3)
[2023-04-15 20:30] LABS: Squamous Epithelial 0-3 HPF (0-3); Transitional Epithelial 0-3 HPF (None Seen)
[2023-04-15 20:34] LABS: Bacteria/HPF 3+ HPF (None Seen)
[2023-04-15 20:36] LABS: Urine Culture Reflex Yes Yes
[2023-04-15] MEDS ORDERED: cefTRIAXone (ROCEPHIN) 1 GM VIAL ONE (20:42)
[2023-04-15] MEDS ORDERED: Sodium Chloride 0.9% 100 ML ONE (20:42)
[2023-04-15] MEDS ORDERED: Morphine 4 MG/ML VIAL ONE (22:40)
== END 2023-04-15 23:42 | disposition home or self-care (01) ==
LOC: NAV ERS 19:06
DX: N39.0 Urinary tract infection, site not specified (principal); U07.1 COVID-19; R11.2 Nausea with vomiting, unspecified; R10.84 Generalized abdominal pain; I25.2 Old myocardial infarction; Z87.891 Personal history of nicotine dependence; Z79.899 Other long term (current) drug therapy
CPT/HCPCS: 36415; 71045; 74177; 80053; 81001; 83690; 85025; 87077; 87086; 87186; 96365; 96375; J0696; J1642; J2270; J2405; J2550; J3490; J7030; Q9967

== ENCOUNTER 2023-05-06 18:40 | Emergency (ER) | payer MEDICARE ==
[2023-05-06] MEDS ORDERED: Ondansetron PF 4 MG/2 ML Vial ONE (19:46)
[2023-05-06 19:51] LABS: Bilirubin Negative (Negative); Blood, Urine Negative (Negative); Clarity Clear (Clear); Glucose, Urine (Dipstick) Negative (Negative); Ketone, Urine Negative (Negative); Leukocyte Negative (Negative); Nitrite Negative (Negative); Protein, Urine (Dipstick) Negative (Neg-Trace); Urobilinogen 0.2 mg/dL (Less than 2)
[2023-05-06 19:51] LABS: #Basophils 0.1 thou/uL (0.0-0.2); #Eosinphils 0.1 thou/uL (0.0-0.7); #Lymphocytes 0.8 thou/uL (1.20-3.40); #Monocytes 0.7 thou/uL (0.11-0.59); #Neutrophils 5.2 thou/uL (1.40-6.50); %Eosinophils 1.8 % (0.0-10.0); %Lymphocytes 11.6 % (21.0-51.0); %Monocytes 9.4 % (0.0-10.0); %Neutrophils 76.2 % (42.0-75.0); Hematocrit 25.8 % (36.0-47.0); Hemoglobin 8.5 g/dL (12.0-16.0); Mean Corpuscular HGB CONC 32.9 g/dL (32.0-36.0); Mean Corpuscular Hemoglobin 34.6 pg (27.0-31.0); Mean Platelet Volume 6.3 fL (7.4-10.4); Platelet Count 106 10x3/uL (130-400); Red Blood Cell (RBC) Count 2.45 mill/uL (4.20-5.40); White Blood Cell (WBC) Count 6.9 10x3/uL (4.8-10.8)
[2023-05-06 20:01] LABS: ALT (SGPT) 21 U/L (8-55); AST (SGOT) 29 U/L (5-34); Albumin 2.4 g/dL (3.4-4.8); Alkaline Phosphatase 95 U/L (40-110); Anion Gap 10 mmol/L (10-20); BUN (Urea Nitrogen) 46 mg/dL (9.8-20.1); Bilirubin, Total 1.3 mg/dL (0.2-1.2); Calc. Creatinine Clearance 0 mL/min (70-130); Calcium 9.7 mg/dL (7.8-10.44); Carbon Dioxide 26 mmol/L (23-31); Chloride 101 mmol/L (98-107); Estimated GFR 52; Globulin 2.5 g/dL (2.4-3.5); Glucose 115 mg/dL (80-115); Lipase 86 U/L (8-78); Potassium 4.4 mmol/L (3.5-5.1); Protein, Total 4.9 g/dL (5.8-8.1); Sodium 133 mmol/L (136-145)
[2023-05-06 20:01] LABS: Bacteria/HPF Rare-Few HPF (None Seen); CAUTI Indications for Culture Pelvic or flank pain; Renal Epithelial 0-3 HPF (None Seen); Squamous Epithelial 0-3 HPF (0-3); WBC/HPF 0-3 HPF (0-3)
[2023-05-06 20:02] LABS: Urine Culture Reflex No No
[2023-05-06] MEDS ORDERED: Midodrine HCl 5 MG TAB PO SCH (20:15)
== END 2023-05-06 22:31 | disposition home or self-care (01) ==
LOC: NAV ERS 18:40
DX: K52.9 Noninfective gastroenteritis and colitis, unspecified (principal); Z87.891 Personal history of nicotine dependence
CPT/HCPCS: 80053; 81001; 83690; 85025; 96361; 96374; J1642; J2405

== ENCOUNTER 2023-05-21 04:10 | Emergency (ER) | payer MEDICARE ==
[2023-05-21 04:48] LABS: Hematocrit 39.2 % (36.0-47.0); Hemoglobin 12.9 g/dL (12.0-16.0); Mean Corpuscular Volume 99.7 fl (78.0-98.0); Red Blood Cell (RBC) Count 2.82 mill/uL (4.20-5.40); White Blood Cell (WBC) Count 11.2 10x3/uL (4.8-10.8)
[2023-05-21] MEDS ORDERED: Sodium Chloride 0.9% 1,000 ML ONE ×2 (04:49→08:19)
[2023-05-21] MEDS ORDERED: Ondansetron PF 4 MG/2 ML Vial ONE (04:49)
[2023-05-21 04:50] LABS: %Basophils 0.5 % (0.0-1.0); %Eosinophils 0.5 % (0.0-10.0); %Lymphocytes 6.9 % (21.0-51.0); %Monocytes 5.9 % (0.0-10.0); %Neutrophils 86.2 % (42.0-75.0); Manual Diff?? NO; Mean Corpuscular HGB CONC 32.9 g/dL (32.0-36.0); Mean Corpuscular Hemoglobin 32.8 pg (27.0-31.0); Mean Platelet Volume 5.7 fL (7.4-10.4); Platelet Count 182 10x3/uL (130-400); RBC Distribution Width 16.4 % (11.5-14.5)
[2023-05-21 04:51] LABS: #Basophils 0.1 thou/uL (0.0-0.2); #Eosinphils 0.1 thou/uL (0.0-0.7); #Lymphocytes 0.8 thou/uL (1.20-3.40); #Monocytes 0.7 thou/uL (0.11-0.59); #Neutrophils 9.9 thou/uL (1.40-6.50)
[2023-05-21 05:04] LABS: ALT (SGPT) 29 U/L (8-55); AST (SGOT) 39 U/L (5-34); Albumin 3.1 g/dL (3.4-4.8); Alkaline Phosphatase 180 U/L (40-110); Anion Gap 20 mmol/L (10-20); BUN (Urea Nitrogen) 17 mg/dL (9.8-20.1); Bilirubin, Total 2.5 mg/dL (0.2-1.2); Calc. Creatinine Clearance 0 mL/min (70-130); Calcium 12.5 mg/dL (7.8-10.44); Carbon Dioxide 21 mmol/L (23-31); Chloride 98 mmol/L (98-107); Estimated GFR 47; Globulin 3.4 g/dL (2.4-3.5); Glucose 107 mg/dL (80-115); Lipase 80 U/L (8-78); Magnesium 1.7 mg/dL (1.6-2.6); Potassium 4.6 mmol/L (3.5-5.1); Protein, Total 6.5 g/dL (5.8-8.1); Sodium 134 mmol/L (136-145)
[2023-05-21] MEDS ORDERED: fentaNYL 50 mcg/mL 1 mL Vial ONE ×3 (05:10→08:33)
[2023-05-21] MEDS ORDERED: Promethazine HCl 25 MG/ML VIAL ONE (05:43)
[2023-05-21] MEDS ORDERED: Iopamidol 370 76% 100 ML VIAL ONE (09:00)
[2023-05-21 09:42] LABS: ALT (SGPT) 26 U/L (8-55); AST (SGOT) 37 U/L (5-34); Albumin 2.7 g/dL (3.4-4.8); Alkaline Phosphatase 155 U/L (40-110); Anion Gap 14 mmol/L (10-20); BUN (Urea Nitrogen) 16 mg/dL (9.8-20.1); Bilirubin, Total 2.4 mg/dL (0.2-1.2); Calc. Creatinine Clearance 0 mL/min (70-130); Calcium 10.7 mg/dL (7.8-10.44); Carbon Dioxide 22 mmol/L (23-31); Chloride 104 mmol/L (98-107); Estimated GFR 57; Globulin 2.9 g/dL (2.4-3.5); Glucose 104 mg/dL (80-115); Potassium 5.2 mmol/L (3.5-5.1); Protein, Total 5.6 g/dL (5.8-8.1); Sodium 135 mmol/L (136-145)
== END 2023-05-21 10:23 | disposition short-term general hospital (02) ==
LOC: NAV ERS 04:10
DX: N17.9 Acute kidney failure, unspecified (principal); E83.52 Hypercalcemia; E86.0 Dehydration; R11.2 Nausea with vomiting, unspecified; Z87.891 Personal history of nicotine dependence; E78.00 Pure hypercholesterolemia, unspecified; Z79.899 Other long term (current) drug therapy
CPT/HCPCS: 71045; 74177; 83690; 83735; 93005; 96361; 96374; 96375; 96376; 99285; J3010; 80053; 84443; 85025; J2405; J2550; J7050; Q9967

== ENCOUNTER 2023-09-18 00:33 | Emergency (ER) | payer MEDICARE ==
[2023-09-18] MEDS ORDERED: Sodium Chloride 0.9% 1,000 ML ONE ×2 (01:16→02:17)
[2023-09-18] MEDS ORDERED: Ondansetron PF 4 MG/2 ML Vial ONE (01:16)
[2023-09-18 01:30] LABS: #Eosinphils 0.1 thou/uL (0.0-0.7); #Lymphocytes 0.4 thou/uL (1.20-3.40); #Monocytes 0.3 thou/uL (0.11-0.59); #Neutrophils 4.5 thou/uL (1.40-6.50); %Basophils 0.5 % (0.0-1.0); %Eosinophils 1.6 % (0.0-10.0); %Lymphocytes 6.9 % (21.0-51.0); %Monocytes 5.3 % (0.0-10.0); %Neutrophils 85.7 % (42.0-75.0); Hematocrit 37.3 % (36.0-47.0); Mean Corpuscular HGB CONC 34.8 g/dL (32.0-36.0); Mean Corpuscular Hemoglobin 34.3 pg (27.0-31.0); Mean Corpuscular Volume 98.8 fl (78.0-98.0); Mean Platelet Volume 5.8 fL (7.4-10.4); Platelet Count 126 10x3/uL (130-400); RBC Distribution Width 13.9 % (11.5-14.5); Red Blood Cell (RBC) Count 3.78 mill/uL (4.20-5.40); White Blood Cell (WBC) Count 5.2 10x3/uL (4.8-10.8)
[2023-09-18 01:48] LABS: ALT (SGPT) 23 U/L (8-55); AST (SGOT) 37 U/L (5-34); Albumin 3.2 g/dL (3.4-4.8); Alkaline Phosphatase 165 U/L (40-110); Anion Gap 18 mmol/L (10-20); BUN (Urea Nitrogen) 17 mg/dL (9.8-20.1); Bilirubin, Total 3.1 mg/dL (0.2-1.2); Calc. Creatinine Clearance 0 mL/min (70-130); Calcium 10.5 mg/dL (7.8-10.44); Carbon Dioxide 18 mmol/L (23-31); Chloride 98 mmol/L (98-107); Estimated GFR 46; Globulin 4.2 g/dL (2.4-3.5); Glucose 139 mg/dL (80-115); Lipase 37 U/L (8-78); Potassium 3.7 mmol/L (3.5-5.1); Protein, Total 7.4 g/dL (5.8-8.1); Sodium 130 mmol/L (136-145)
[2023-09-18 02:10] LABS: Influenza A by NAA Not Detected (NotDetected); Influenza B by NAA Not Detected (NotDetected); SARS-CoV-2 NAA Rapid Test Not Detected (NotDetected)
[2023-09-18] MEDS ORDERED: fentaNYL 50 mcg/mL 1 mL Vial ONE (02:29)
[2023-09-18 03:38] LABS: Bilirubin Negative (Negative); Blood, Urine Negative (Negative); Clarity Clear (Clear); Glucose, Urine (Dipstick) Negative (Negative); Ketone, Urine Trace mg/dL (Negative); Leukocyte Negative (Negative); Nitrite Negative (Negative); Protein, Urine (Dipstick) Trace mg/dL (Neg-Trace); Specific Gravity, Urine 1.025 (1.005-1.030); Urobilinogen 0.2 mg/dL (Less than 2); pH, Urine 5.5 (5.0-9.0)
[2023-09-18 03:39] LABS: Bacteria/HPF None Seen HPF (None Seen); CAUTI Indications for Culture Dysuria,urgency,freq; Calcium Oxalate Crystals Rare HPF (None Seen); RBC/HPF 0-3 HPF (0-3); Squamous Epithelial 0-3 HPF (0-3); WBC/HPF 0-3 HPF (0-3)
[2023-09-18 03:40] LABS: Urine Culture Reflex No No
[2023-09-18 04:04] LABS: Lactic Acid 2.2 mmol/L (0.5-2.2)
[2023-09-18] MEDS ORDERED: Promethazine HCl 25 MG/ML VIAL ONE (04:22)
[2023-09-18] MEDS ORDERED: HYDROcodone/Acetaminophen 10/325 mg Tablet ONE (04:22)
== END 2023-09-18 05:00 | disposition home or self-care (01) ==
LOC: NAV ERS 00:33
DX: E86.0 Dehydration (principal); I25.2 Old myocardial infarction; Z87.891 Personal history of nicotine dependence
CPT/HCPCS: 80053; 81001; 83605; 83690; 85025; 96361; 96374; 96375; J1642; J2405; J2550; J3010; J7050

== ENCOUNTER 2023-12-14 15:32 | Emergency (ER) | payer MEDICARE ==
[2023-12-14] MEDS ORDERED: Morphine 4 MG/ML VIAL ONE (16:20)
[2023-12-14] MEDS ORDERED: Ondansetron PF 4 MG/2 ML Vial ONE (16:21)
[2023-12-14 16:44] LABS: Bilirubin Negative (Negative); Blood, Urine Negative (Negative); Clarity Clear (Clear); Glucose, Urine (Dipstick) Negative (Negative); Ketone, Urine Negative (Negative); Leukocyte Negative (Negative); Nitrite Negative (Negative); Protein, Urine (Dipstick) Negative (Neg-Trace); RBC/HPF 0-3 HPF (0-3); Specific Gravity, Urine 1.015 (1.005-1.030); Squamous Epithelial 0-3 HPF (0-3); Urobilinogen 0.2 mg/dL (Less than 2)
[2023-12-14 16:48] LABS: %Basophils 1.2 % (0.0-1.0); %Eosinophils 3.3 % (0.0-10.0); %Lymphocytes 15.9 % (21.0-51.0); %Monocytes 12.1 % (0.0-10.0); %Neutrophils 67.5 % (42.0-75.0); Hematocrit 26.7 % (36.0-47.0); Hemoglobin 8.5 g/dL (12.0-16.0); Manual Diff?? NO; Mean Corpuscular Hemoglobin 32.7 pg (27.0-31.0); Mean Platelet Volume 4.8 fL (7.4-10.4); Platelet Count 104 10x3/uL (130-400); RBC Distribution Width 15.3 % (11.5-14.5); Red Blood Cell (RBC) Count 2.61 mill/uL (4.20-5.40); White Blood Cell (WBC) Count 3.9 10x3/uL (4.8-10.8)
[2023-12-14 16:49] LABS: #Eosinphils 0.1 thou/uL (0.0-0.7); #Lymphocytes 0.6 thou/uL (1.20-3.40); #Monocytes 0.5 thou/uL (0.11-0.59); #Neutrophils 2.6 thou/uL (1.40-6.50)
[2023-12-14 16:55] LABS: ALT (SGPT) 31 U/L (8-55); AST (SGOT) 55 U/L (5-34); Albumin 2.3 g/dL (3.4-4.8); Alkaline Phosphatase 154 U/L (40-110); Anion Gap 13 mmol/L (10-20); BUN (Urea Nitrogen) 6 mg/dL (9.8-20.1); Bilirubin, Total 2.6 mg/dL (0.2-1.2); Calc. Creatinine Clearance 0 mL/min (70-130); Calcium 8.5 mg/dL (7.8-10.44); Carbon Dioxide 23 mmol/L (23-31); Chloride 102 mmol/L (98-107); Estimated GFR 80; Globulin 2.9 g/dL (2.4-3.5); Glucose 102 mg/dL (80-115); Lipase 75 U/L (8-78); Potassium 2.8 mmol/L (3.5-5.1); Protein, Total 5.2 g/dL (5.8-8.1); Sodium 135 mmol/L (136-145)
[2023-12-14] MEDS ORDERED: Potassium Chloride 10 MEQ/100 ML PREMIX BAG ONE (18:31)
== END 2023-12-14 19:38 | disposition home or self-care (01) ==
LOC: NAV ERS 15:32
DX: R10.33 Periumbilical pain (principal); D64.9 Anemia, unspecified; K74.60 Unspecified cirrhosis of liver; E87.6 Hypokalemia; R11.0 Nausea; Z87.891 Personal history of nicotine dependence; Z79.899 Other long term (current) drug therapy
CPT/HCPCS: 74177; 80053; 81001; 83605; 83690; 85025; 94760; 96365; 96375; J1642; J2270; J2405; J3480; Q9967

== ENCOUNTER 2023-12-22 10:29 | Outpatient (CLI) | payer MEDICARE ==
[2023-12-22 11:52] LABS: ALT (SGPT) 22 U/L (8-55); AST (SGOT) 39 U/L (5-34); Alkaline Phosphatase 128 U/L (40-110); Anion Gap 11 mmol/L (10-20); BUN (Urea Nitrogen) 8 mg/dL (9.8-20.1); Bilirubin, Total 2.7 mg/dL (0.2-1.2); Calc. Creatinine Clearance 0 mL/min (70-130); Calcium 8.9 mg/dL (7.8-10.44); Carbon Dioxide 25 mmol/L (23-31); Chloride 104 mmol/L (98-107); Estimated GFR 71; Globulin 2.8 g/dL (2.4-3.5); Glucose 96 mg/dL (80-115); Magnesium 1.7 mg/dL (1.6-2.6); Potassium 2.7 mmol/L (3.5-5.1); Protein, Total 4.8 g/dL (5.8-8.1); Sodium 137 mmol/L (136-145)
[2023-12-22 12:01] LABS: #Eosinphils 0.2 thou/uL (0.0-0.7); #Lymphocytes 0.6 thou/uL (1.20-3.40); #Monocytes 0.5 thou/uL (0.11-0.59); #Neutrophils 3.1 thou/uL (1.40-6.50); %Basophils 1.1 % (0.0-1.0); %Eosinophils 4.5 % (0.0-10.0); %Lymphocytes 14.2 % (21.0-51.0); %Neutrophils 68.2 % (42.0-75.0); Hemoglobin 8.1 g/dL (12.0-16.0); Mean Corpuscular Hemoglobin 32.3 pg (27.0-31.0); Mean Platelet Volume 4.9 fL (7.4-10.4); Platelet Count 99 10x3/uL (130-400); RBC Distribution Width 15.8 % (11.5-14.5); White Blood Cell (WBC) Count 4.5 10x3/uL (4.8-10.8)
== END 2023-12-22 10:30 | disposition home or self-care (01) ==
LOC: NAV ER/OP 10:29
PROVIDERS: ATTEND Internal Medicine
DX: E87.6 Hypokalemia (principal); D50.0 Iron deficiency anemia secondary to blood loss (chronic); K71.7 Toxic liver disease with fibrosis and cirrhosis of liver
CPT/HCPCS: 36415; 80053; 83735; 85025

== ENCOUNTER 2023-12-27 05:36 | Emergency (ER) | payer MEDICARE ==
[2023-12-27] MEDS ORDERED: Ondansetron PF 4 MG/2 ML Vial ONE ×3 (06:02→08:39)
[2023-12-27] MEDS ORDERED: fentaNYL 50 mcg/mL 1 mL Vial ONE ×4 (06:02→17:53)
[2023-12-27] MEDS ORDERED: Sodium Chloride 0.9% 1,000 ML ONE (06:03)
[2023-12-27 06:14] LABS: #Eosinphils 0.1 thou/uL (0.0-0.7); #Lymphocytes 0.5 thou/uL (1.20-3.40); #Monocytes 0.3 thou/uL (0.11-0.59); #Neutrophils 3.6 thou/uL (1.40-6.50); %Eosinophils 1.5 % (0.0-10.0); %Lymphocytes 11.8 % (21.0-51.0); %Monocytes 6.9 % (0.0-10.0); %Neutrophils 78.8 % (42.0-75.0); Hematocrit 30.8 % (36.0-47.0); Hemoglobin 9.8 g/dL (12.0-16.0); Mean Corpuscular HGB CONC 31.8 g/dL (32.0-36.0); Mean Corpuscular Hemoglobin 32.5 pg (27.0-31.0); Mean Platelet Volume 4.9 fL (7.4-10.4); Platelet Count 122 10x3/uL (130-400); RBC Distribution Width 15.1 % (11.5-14.5); Red Blood Cell (RBC) Count 3.02 mill/uL (4.20-5.40); White Blood Cell (WBC) Count 4.6 10x3/uL (4.8-10.8)
[2023-12-27 06:20] LABS: Bilirubin Negative (Negative); Blood, Urine Negative (Negative); Clarity Clear (Clear); Glucose, Urine (Dipstick) Negative (Negative); Ketone, Urine Trace mg/dL (Negative); Leukocyte Negative (Negative); Nitrite Negative (Negative); Protein, Urine (Dipstick) Negative (Neg-Trace); Specific Gravity, Urine 1.015 (1.005-1.030); Urobilinogen 0.2 mg/dL (Less than 2)
[2023-12-27 06:22] LABS: CAUTI Indications for Culture Pelvic or flank pain; RBC/HPF None Seen HPF (0-3); WBC/HPF None Seen HPF (0-3)
[2023-12-27 06:23] LABS: Bacteria/HPF None Seen HPF (None Seen); Squamous Epithelial None Seen HPF (0-3); Urine Culture Reflex No No
[2023-12-27 06:31] LABS: ALT (SGPT) 28 U/L (8-55); AST (SGOT) 54 U/L (5-34); Albumin 2.4 g/dL (3.4-4.8); Alkaline Phosphatase 159 U/L (40-110); Anion Gap 17 mmol/L (10-20); BUN (Urea Nitrogen) 9 mg/dL (9.8-20.1); Bilirubin, Total 3.6 mg/dL (0.2-1.2); Calc. Creatinine Clearance 0 mL/min (70-130); Calcium 8.9 mg/dL (7.8-10.44); Carbon Dioxide 24 mmol/L (23-31); Chloride 96 mmol/L (98-107); Estimated GFR 63; Globulin 3.2 g/dL (2.4-3.5); Glucose 125 mg/dL (80-115); Lipase 45 U/L (8-78); Protein, Total 5.6 g/dL (5.8-8.1); Sodium 134 mmol/L (136-145)
[2023-12-27 06:45] LABS: Critical Call Chemistry NUR.ANG2@0645; Potassium 2.5 mmol/L (3.5-5.1)
[2023-12-27] MEDS ORDERED: D5 1/2 NS w/20 mEq KCL 1,000 ML ONE (06:46)
[2023-12-27 08:52] LABS: Lactic Acid 2.5 mmol/L (0.5-2.2)
[2023-12-27] MEDS ORDERED: Potassium Chloride 10 MEQ/100 ML PREMIX BAG ONE (10:04)
[2023-12-27] MEDS ORDERED: Promethazine HCl 25 MG/ML VIAL ONE ×2 (13:13→17:53)
== END 2023-12-27 18:07 | disposition short-term general hospital (02) ==
LOC: NAV ERS 05:36
DX: K74.60 Unspecified cirrhosis of liver (principal); E87.6 Hypokalemia; R11.2 Nausea with vomiting, unspecified; I25.2 Old myocardial infarction; Z87.891 Personal history of nicotine dependence
CPT/HCPCS: 80053; 81001; 83605; 83690; 85025; 96365; 96366; 96375; 96376; J2405; J2550; J3010; J3480; J7050

== ENCOUNTER 2024-01-28 11:11 | Emergency (ER) | payer MEDICARE, SELFPAY ==
[2024-01-28] MEDS ORDERED: Morphine 2 MG/ML VIAL ONE (12:00)
[2024-01-28] MEDS ORDERED: Ondansetron PF 4 MG/2 ML Vial ONE (12:00)
== END 2024-01-28 15:00 | disposition short-term general hospital (02) ==
LOC: NAV ERS 11:11
DX: M54.50 Low back pain, unspecified (principal); M25.551 Pain in right hip; Z87.891 Personal history of nicotine dependence; W19.XXXA Unspecified fall, initial encounter
CPT/HCPCS: 72170; 96374; 96375; J2272; J2405